=== PATIENT | female | born 1960 | race African-American/Black ===

== ENCOUNTER 2017-08-02 11:07 | Day surgery (SDC) | payer OTHER ==
[~2017-08-02 11:07] MED LIST: PROPOFOL INJ 200 MG/20 ML VIAL IV ONE
[2017-08-02 12:54] VITALS: BP 146/96
--- NOTE | 2017-08-02 14:14 | Operative Report ---
Operative Report DATE OF SURGERY: 08/02/17 Operative Report: The risks, benefits and alternatives of the procedure including risks of bleeding, perforation requiring surgery are explained to the patient in detail and informed consent is obtained. Patient is taken back to the endoscopy suite and placed in the left, lateral decubital position. Timeout was called. Propofol medications administered. A rectal examination is done which did not reveal any masses, tears or fissures. An Olympus videoscope was inserted into the patient's rectum. The scope was then carefully advanced all the way to the cecum. The cecum is identified by the usual anatomical landmarks including the ileocecal valve as well as the appendiceal office. Photodocumentation is obtained. The scope was then sequentially pulled back via the various segments of the colon including the ascending colon, hepatic flexure, transverse colon, splenic flexure, descending colon and finally into the rectosigmoid portions of the colon. Retroflexion maneuver is performed. PREOPERATIVE DIAGNOSIS: Colorectal cancer screening POSTOPERATIVE DIAGNOSIS: Sessile rectosigmoid polyp removed via biopsy forceps. Internal hemorrhoids OPERATION: Colonoscopy with biopsy SURGEON: VIANEY DELATORRE ANESTHESIA: LMAC TISSUE REMOVED OR ALTERED: As noted above. COMPLICATIONS: None. ESTIMATED BLOOD LOSS: None. INTRAOPERATIVE FINDINGS: As noted above. PROCEDURE: Patient tolerated the procedure well. No immediate postprocedure complications are noted. Patient discharged in good condition. Discharge date 08/02/2017. Discharge diet: Regular. Discharge activity: Regular. 2-3 week follow-up to discuss findings. Patient is instructed call the office or proceed to the emergency room should there be any further problems or questions. 3-5 year surveillance colonoscopy.
== END 2017-08-02 12:50 | disposition home or self-care (01) ==
LOC: END 11:07
PROVIDERS: ATTEND Internal Medicine Gastroenterology
PROC: 0DBP8ZX Excision of Rectum, Via Natural or Artificial Opening Endoscopic, Diagnostic (ICD-10-PCS; principal; 2017-08-02 14:00)
DX: Z12.11 Encounter for screening for malignant neoplasm of colon (principal); D12.7 Benign neoplasm of rectosigmoid junction; K64.8 Other hemorrhoids
CPT/HCPCS: 45380; 88305 ×2; J2704; 811

== ENCOUNTER → 2018-05-18 | Outpatient (CLI) | payer MEDICARE, MEDICAID ==
--- NOTE | 2018-05-19 07:31 | RADIOLOGY REPORT (SQ) ---
EXAM DESCRIPTION: MRI RT UPPER JOINT WITHOUT COMPLETED DATE/TIME: 05/18/2018 2:41 pm REASON FOR STUDY: PAIN IN RIGHT SHOULDER (M25.511) M25.511 PAIN IN RIGHT SHOULDER COMPARISON: None. TECHNIQUE: Right shoulder images acquired and stored on PACS. Multiplanar imaging to include fat sen sitive sequences such as T1, water sensitive sequences such as FST2/STIR, cartilage sensitive sequenc es such as FSPD/gradient-echo sequences. LIMITATIONS: None. FINDINGS: BONE MARROW AND CORTEX: Large lateral humeral head anterior intraosseous ganglion, loculat ed and septated hyperintense T2 lesion measuring close to 1.8 cm maximal dimension. This underlies c uff tear described below. JOINT OR BURSAL EFFUSION: Small joint effusion. Osteochondral loose body in the inferior joint measu res 8 mm. GLENO-HUMERAL ARTICULATION: Diffuse chondral thinning. Subchondral cysts on the glenoid side of the joint. Mild osteophytes. ACROMION AND AC JOINT: Mild os acromiale. ROTATOR CUFF AND INTERVAL: Interstitial tear focally along supraspinatus insertion. High-grade parti al. No overt cuff muscle atrophy. LABRUM AND BICEPS LABRAL COMPLEX: Suspect at least fraying along the biceps anchor. The biceps ten don looks relatively normal. REMAINDER OF LABRUM AND IGHL : Diffuse labral blunting and tissue loss. Includes tear through the an terior inferior labrum. PERIARTICULAR AND ADJACENT SOFT TISSUES: No regional mass or axillary adenopathy. OTHER: No other significant finding. IMPRESSION: 1. Focal high-grade partial tear along supraspinatus at insertion. Underlying intraosseous ganglion in the humeral head. Os acromiale. 2. 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 3. Labral tears. Biceps intact. TECHNICAL DOCUMENTATION: JOB ID: [id number] [employer]- All Rights Reserved Reading location - IP/workstation name: [email or web address]
== END ==
LOC: RAD 13:25
PROVIDERS: ATTEND Physician Assistant
DX: M25.511 Pain in right shoulder (principal); M75.111 Incomplete rotator cuff tear or rupture of right shoulder, not specified as traumatic; M24.011 Loose body in right shoulder

== ENCOUNTER 2020-01-09 12:47 | Emergency (ER) | payer MEDICARE, MEDICAID ==
[2020-01-09 12:55] VITALS: BP 165/86
--- NOTE | 2020-01-09 13:39 | ER Document Report ---
ED Medical Screen (RME) - General Chief Complaint: Toe Injury Stated Complaint: RIGHT FOOT 3RD DIGIT INJURY Time Seen by Provider: 01/09/20 13:32 Primary Care Provider: ARMOND NESS PA [Primary Care Provider] - Follow up as needed TRAVEL OUTSIDE OF THE [place] IN LAST 30 DAYS: No - HPI Notes: 01/09/20 13:37 59-year-old female presents emergency room for pain to her right third toe after she missed stepped over some shoes, thinks that she broke her toe about an hour ago. Denies any other area of injury. Has not tried any ewqa-ijm-[id number] medications. Reports pain is 3 out of 5, throbbing achy. Has not tried any heat or icing. Unable to bear full weight on her foot. Denies fevers, chills, chest pain,palpitations, shortness of breath, dyspnea, nausea, vomiting, diar dorinda, abdominal pain, hematuria,blurred vision, double vision, loss of vision, speech changes, LH, dizziness, syncope, headaches, wheezing, ST, URI, neck pain, weakness, bowel or bladder dysfunction, saddle anesthesia, numbness or tingling in bilateral upper or lower extremities equally, muscle paralysis, weakness in bilateral upper or lower extremities equally or rash. MEDICATIONS: I agree with the patient medications as charted by the RN. ALLERGIES: I agree with the allergies as charted by the RN. PAST MEDICAL HISTORY/PAST SURGICAL HISTORY: Reviewed and agree as charted by RN. SOCIAL HISTORY: Reviewed and agree as charted by RN. FAMILY HISTORY: No significant familial comorbid conditions directly related to patient complaint EXAM: Reviewed vital signs as charted by RN. REVIEW OF SYSTEMS:reviewed vital signs by RN CONSTITUTIONAL : Denies fever, chills, or sweats. Denies recent illness. EENT: Denies eye, ear, throat, or mouth pain or symptoms. Denies nasal or sinus congestion or discharge. Denies throat, tongue, or mouth swelling or difficulty swallowing. CARDIOVASCULAR: Denies chest pain. Denies palpitations or racing or irregular heart beat. Denies ankle edema. RESPIRATORY: Denies cough, cold, or chest congestion. Denies shortness of breath, difficulty breathing, or wheezing. GASTROINTESTINAL: Denies abdominal pain or distention. Denies nausea, vomiting, or diarrhea. Denies blood in vomitus, stools, or per rectum. Denies black, tarry stools. Denies constipation. GENITOURINARY: Denies difficulty urinating, painful urination, burning, frequency, blood in urine, or discharge. FEMALE GENITOURINARY: Denies vaginal bleeding, heavy or abnormal periods, irregular periods. Denies vaginal discharge or odor. MUSCULOSKELETAL: reports right toe pain. denies back or neck pain or stiffness. Denies joint pain or swelling. SKIN: Denies rash, lesions or sores. HEMATOLOGIC : Denies easy bruising or bleeding. LYMPHATIC: Denies swollen, enlarged glands. NEUROLOGICAL: Denies confusion or altered mental status. Denies passing out or loss of consciousness. Denies dizziness or lightheadedness. Denies headache. Denies weakness or paralysis or loss of use of either side. Denies problems with gait or speech. Denies sensory loss, numbness, or tingling. Denies seizures. PSYCHIATRIC: Denies anxiety or stress. Denies depression, suicidal ideation, or homicidal ideation. ALL OTHER SYSTEMS REVIEWED AND NEGATIVE. PHYSICAL EXAMINATION: GENERAL: Well-appearing, well-nourished and in no acute distress. HEAD: Atraumatic, normocephalic. EYES: Pupils equal round and reactive to light, extraocular movements intact, conjunctiva are normal. ENT: Nares patent, oropharynx clear without exudates. Moist mucous membranes. NECK: Normal range of motion, supple without lymphadenopathy LUNGS: Breath sounds clear to auscultation bilaterally and equal. No wheezes rales or rhonchi. HEART: Regular rate and rhythm without murmurs ABDOMEN: Soft, nontender, nondistended abdomen. No guarding, no rebound. No masses appreciated. Female : deferred Musculoskeletal: Normal range of motion, no pitting or edema. No cyanosis. right foot with STS and tenderness on 3rd phalange with palpation. Unable to palpate a step-off. No open lesions. squeeze test negative. dtr +2 BLE. Limited APROM. distal pulses + 2 in BUE. full motor and sensory function. No vascular compromise. right foot/Ankle exam within normal limits. No noted lacerations, lesions, ulcers or break in the skin. NEUROLOGICAL: Cranial nerves grossly intact. Normal speech, normal gait. Normal sensory, motor exams PSYCH: Normal mood, normal affect. SKIN: Warm, Dry, normal turgor, no rashes or lesions noted. Dictation was performed using [employer] voice recognition software 01/09/20 15:03 - Related Data Allergies/Adverse Reactions: No Known Allergies Allergy (Verified 08/02/17 11:21) Past Medical History - General Information source: Patient - Social History Family history: Reviewed & Not Pertinent - Past Medical History Cardiac Medical History: Denies: Hx Coronary Artery Disease, Hx Heart Attack, Hx Hypertension Pulmonary Medical History: Denies: Hx Asthma, Hx Bronchitis, Hx COPD, Hx Pneumonia Neurological Medical History: Denies: Hx Cerebrovascular Accident, Hx Seizures Musculoskeltal Medical History: Denies Hx Arthritis Psychiatric Medical History: Reports: Hx Schizoaffective Disorder Infectious Medical History: Denies: Hx MRSA Past Surgical History: Reports: Hx Cholecystectomy - Immunizations Hx Diphtheria, Pertussis, Tetanus Vaccination: Yes Physical Exam - Vital signs Vitals: Temp Pulse Resp BP Pulse Ox 98.2 F 105 H 16 165/86 H 95 01/09/20 12:52 01/09/20 12:52 01/09/20 12:52 01/09/20 12:52 01/09/20 12:52 Course - Re-evaluation Re-evalutation: 01/09/20 13:39 Afebrile vital stable no distress. Nurses notes reviewed. X-ray of right 3rd toe shows a nondisplaced fracture. Patient given ibuprofen 600 mg. Toe was brenda taped and advised to follow-up with an electronic commerce specialist as well as lennox montero crutches. Advised to elevate above level of heart. advised to alternate between Tylenol and ibuprofen for pain control. After performing a Medical Screening Examination, I estimate there is LOW risk for OPEN FRACTURE, COMPARTMENT SYNDROME, DEEP VENOUS THROMBOSIS, ACUTE TENDON RUPTURE, or NEUROVASCULAR INJURY thus I consider the discharge disposition reasonable. I have reevaluated this patient multiple times and no significant life threatening changes are noted. The patient and I have discussed the diagnosis and risks, and we agree with discharging home to closely follow-up with their primary doctor or the referral orthopedist with the understanding that symptoms and presentations can change. We also discussed returning to the Emergency Department immediately if new or worsening symptoms occur. We have discussed the symptoms which are most concerning (e.g., changing or worsening pain, numbness, weakness) that necessitate immediate return 01/09/20 15:04 - Vital Signs Vital signs: Temp Pulse Resp BP Pulse Ox 98.2 F 105 H 16 165/86 H 95 01/09/20 12:52 01/09/20 12:52 01/09/20 12:52 01/09/20 12:52 01/09/20 12:52 Doctor's Discharge - Discharge Clinical Impression: Toe fracture, right Qualifiers: Encounter type: initial encounter Toe: lesser toe Fracture type: closed Phalanx: middle Fracture alignment: nondisplaced Qualified Code(s): S92.524A - Nondisplaced fracture of middle phalanx of right lesser toe(s), initial encounter for closed fracture Condition: Stable Disposition: HOME, SELF-CARE Instructions: Brenda Taping (toes) ([facility]), Fractured Toe ([facility]) Additional Instructions: . Fractured Toe You have fractured your toe. Although this fracture doesn't need a cast or splint, emergency evaluation was needed to assess the straightness of the bones and joints. Reduction ("setting") is necessary for toe fractures which are crooked or twisted. A toe fracture will heal in about three weeks. Usually, the fractured toe is taped to the next toe. The second toe acts as a moving splint to protect the broken one. Ice and elevation help during the first 48 hours. You may need crutches at first if walking is painful. When you begin walking, be careful NOT to do things that hurt. If weight bearing is not comfortable within a few days, you may require a special shoe, walking boot, or cast. Call the doctor or return at once if severe swelling, severe pain, or numbn ess develop in the toe, or if you suspect you may have re-injured it. Follow-up with electronic commerce specialist within the next 24 to 48 hours. You can take [id number] Tylenol or ibuprofen for pain control Return immediately for any new or worsening symptoms. Follow up with primary care provider, call tomorrow to make followup appointment. Forms: Return to Work Referrals: ARMOND NESS PA [Primary Care Provider] - Follow up as needed JEFFERY CHARLES DO [ACTIVE STAFF] - Follow up as needed
--- NOTE | 2020-01-09 14:48 | RADIOLOGY REPORT (SQ) ---
EXAM DESCRIPTION: TOE RIGHT IMAGES COMPLETED DATE/TIME: 01/09/2020 2:26 pm REASON FOR STUDY: right 3rd toe pain r/o fx COMPARISON: None. NUMBER OF VIEWS: Three views. TECHNIQUE: AP, lateral, and oblique images acquired of the right third toe. LIMITATIONS: None. FINDINGS: MINERALIZATION: Normal. BONES: Oblique midshaft fracture of the proximal phalanx with no significant displacement. JOINTS: No effusions. SOFT TISSUES: No soft tissue swelling. No foreign body. OTHER: No other significant finding. IMPRESSION: Nondisplaced fracture proximal 3rd phalanx. COMMENT: SITE OF TRAUMA/COMPLAINT MARKED/STAMP COMPLETED: NOT APPLICABLE. TECHNICAL DOCUMENTATION: JOB ID: [id number] 2010 [employer]- All Rights Reserved Reading location - IP/workstation name: [email or web address]
[2020-01-09] MEDS ORDERED: IBUPROFEN 600 MG TABLET PO ONE (15:04)
== END 2020-01-09 16:10 | disposition home or self-care (01) ==
LOC: ER 12:47
DX: S92.524A Nondisplaced fracture of middle phalanx of right lesser toe(s), initial encounter for closed fracture (principal); X58.XXXA Exposure to other specified factors, initial encounter
CPT/HCPCS: 99284